=== PATIENT | male | born 1950 | race Caucasian/White ===

== ENCOUNTER → 2017-01-14 | Outpatient (CLI) | payer OTHER ==
[2016-07-05 15:30] VITALS: BP 140/81
[~2017-01-14] MED LIST: NS 100 ML IV 100 ML IV ONE
[2017-01-14 10:30] LABS: CREATININE 1.23 mg/dL (0.70-1.30)
--- NOTE | 2017-01-14 12:15 | CT ---
HISTORY: Followup pulmonary embolus. Patient had pulmonary emboli in June. Patient has been on bl ood thinners. Study: CTA chest, PE protocol Comparison: July 03, 2016 Technique: Multiple axial images of the chest were obtained from the thoracic inlet to the upper abd omen during the administration of IV contrast. In addition to standard multi planar reconstructions, MIP reconstructions were performed and reviewed in axial, coronal and sagittal planes. Dose reducti on techniques utilized automatic exposure control. Findings: A few small nonpathologic appearing lymph nodes are present in the central mediastinum and in the ao rtico pulmonary window. There is no pericardial effusion observed. The thoracic aorta is normal in its contour without evidence for aneurysmal dilatation. there are calcifications present within rig ht and left coronary arteries. Left-sided pacemaker is present with leads. These metallic structures are seen to create significant artifacts. Significant interval improvement is noted in the pulmonar y emboli which are now seen to involve only smaller branches that are present serving the arteries o f the posterior and lateral basal segment of the right lower lobe. No right upper lobe or left pulmo nary emboli are seen. Evaluation of the lung parenchyma reveals cylindrical bronchiectasis with patchy foci likely indicat ing inflammation involving the right upper lobe and right lower lobe regions. No dense consolidation or pleural fluid is seen. No pulmonary nodule or mass can be identified. The bony thorax is unrema rkable in its appearance. There is again evidence of hepatic steatosis. Adrenal glands are normal.. IMPRESSION: Significant interval improvement with reduction and pulmonary emboli. Few residual emboli present in volving branches supplying the lateral and posterior basal segments of the right lower lobe. COPD with cylindrical bronchiectasis and patchy foci of inflammation in right upper and right lower lobe regions. No dense consolidation or fluid is seen. Reported By:
== END ==
LOC: RAD 10:03
PROVIDERS: ATTEND Internal Medicine Critical Care Medicine
DX: I26.99 Other pulmonary embolism without acute cor pulmonale (principal)
CPT/HCPCS: 36415; 71275; 82565; 84520; A4222

== ENCOUNTER → 2017-05-16 | Outpatient (CLI) | payer OTHER ==
[2016-07-05 15:30] VITALS: BP 140/81
[~2017-05-16] MED LIST changes: -NS 100 ML IV 100 ML IV ONE; +NS 1000 ML 0 ML ONE; +NS 500 ML IV 500 ML IV ONE
[2017-05-16 09:04] LABS: CREATININE 1.43 mg/dL (0.70-1.30)
--- NOTE | 2017-05-16 11:37 | CT ---
HISTORY: History of pulmonary embolus Study: CTA chest with contrast for pulmonary embolus Comparison: 01/14/2017 Technique: Axial post-contrast images with coronal and sagittal reformats. Three-dimensional maximum intensity projection images were obtained and evaluated. Dose reduction procedures were used with mA/ kv adjusted for body size. Findings: There is no evidence for acute pulmonary thromboembolic disease. There is some residual peripheral no nocclusive thrombus identified at the bifurcation of segmental branches involving the posterior and m edial basal segments of the right lower lobe. This is best visualized on series 4 axial image 50 for and series 8 coronal image 40. No other residual evidence of the prior pulmonary emboli are identifie d. Examination of the mediastinum demonstrated no evidence for mediastinal masses, lymphadenopathy, o r hilar lymphadenopathy. Coronary artery calcifications are present. No pleural effusions are identif ied. No chest wall or axillary abnormality is identified. Those portions of the upper abdominal organ s visualized were within normal limits. No parenchymal nodules, masses, alveolar infiltrates, areas o f consolidation, or significant peribronchial thickening is identified. There is some mild cylindrica l bronchiectasis again identified in the right upper lobe unchanged in appearance from the prior exam ination. Mild inflammatory changes are also present in the right upper lobe. IMPRESSION: No evidence for acute pulmonary thromboembolic disease Minimal residual nonocclusive thrombus involving the arterial branches to the posterior and medial ba genaro segments on the right. Mild cylindrical bronchiectasis right upper lobe, stable Reported By:
== END | disposition home or self-care (01) | DRG 175 ==
LOC: RAD 08:38
PROVIDERS: ATTEND Internal Medicine Critical Care Medicine
DX: I26.09 Other pulmonary embolism with acute cor pulmonale (principal); J47.9 Bronchiectasis, uncomplicated
CPT/HCPCS: 36415; 71275; 82565; 84520

== ENCOUNTER 2020-04-12 19:13 | Inpatient (IN) ==
[2020-04-12 19:38] VITALS: BMI 43.0
--- NOTE | 2020-04-12 20:23 | DR.GENAD ---
HPI - PCP Primary Care Physician: HIRAM - Complaint/Symptoms Chief Complaint Doctors Comments: states he has been having problems with low blood pressure and with him being sleepy and confused. States his blood pressure at home was 120/45 and they have been hoding his lisinopril. States he just lost a daughter and has been dealing with depression and anxiety. He is taking Xanax 1mg twice daily. Family member denies tobacco or alcohol use. States he has COPD and has SOB but denies chest pain. He has been having swelling right leg mainly. They are unsure how much medicines he has taken. Chief Complaint:: LOW BLOOD PRESSURE, ANXIETY, LW OXYGEN SATURATION(IN THE UPPER 80'S), USUALLY RUNS LOW 90'S, DROWSY, GOES TO SLEEP SITTING UP Self Treatment fo Chief Complaint: BEEN WALKING, AND TRYING TO BE ACTIVE TO GET BLOOD PRESSURE HIGHER - COVID-19 Coronavirus risk:travel/contact w/high risk person: No Has patient experienced Coronavirus symptoms: No Coronavirus symptoms experienced: Shortness of Breath - Nurses notes reviewed Nurses Notes Review: Yes - Source History Provided: Family Member - Mode of Arrival Mode of Arrival: Ambulatory - Timing Onset of Chief Complaint: 04/12/20 Came on: Gradually - Duration Duration: Constant How lon Duration: Days - Severity Severity: Moderate - Modifying Factors Worsens:: nothing Improves:: nothing PMH - PMH Past Medical History: Yes Past Medical History: Anemia, Anxiety, CHF, COPD, Coronary Artery Disease, Diabetes, GERD, Hypertension, Sleep Apnea Past Surgical History: Yes Surgical History: CABG/Valve Surgery Past Surgical History Comment: PACEMAKER - Family History History of Family Medical Conditions: Yes Family Medical History: [place] - Social History Does patient currently use any type of tobacco product: No Have you used tobacco products in the last 12 months: No Type of Tobacco Use: None Alcohol Use: None Do you use any recreational Drugs:: No Lives With: Spouse Lives Where: Home - Travel Risk Coronavirus risk:travel/contact w/high risk person: No Has patient experienced Coronavirus symptoms: No - infectious screening In the last 2 months have you had wt loss of >10#?: NO Have you had fever, night sweats or hemotysis?: No Have you traveled outside the country in the last 6 months?: No Isolation: Standard ROS - Review of Systems Constitutional: No Symptoms Reported Eyes: No Symptoms Reported ENTM: No Symptoms Reported Respiratoy: No Symptoms Reported, Short of Breath Cardiovascular: No Symptoms Reported, Edema. negative: See HPI, Chest Pain, Palpitations, Syncope, Cyanosis, Skin Mottling, Other Gastrointestinal/Abdominal: No Symptoms Reported Genitourinary: No Symptoms Reported Neurological: No Symptoms Reported, Anxiety, Depressed, Weakness Musculoskeletal: No Symptoms Reported Integumentary: No Symptoms Reported Hematologic/Lymphatic: No Symptoms Reported. negative: See HPI, Anemia, Blood Clots, Easy Bleeding, Easy Bruising, Swollen Glands, Lymphadenopathy, Other Endocrine: No Symptoms Reported Psychiatric: No Symptoms Reported, Anxiety, Depression PE - General Limitations: No Limitations General Appearance: Alert, In Distress (moderate) - Head Head Exam: Normal Inspection, Atraumatic, Normocephalic - Eyes Eye exam: Normal Appearance, PERRL, EOMI. negative: Scleral Icterus, Conjunctival Injection, Nystagmus, Miosis, Mydrasis, Periorbital Swelling, Periorbital Tenderness, Other - ENT ENT Exam: Normal Exam, Normal Oropharynx, Normal External Ear Exam, Mucous Membranes Moist, TM's Normal Bilaterally External Ear Exam: Normal External Inspection TM/Canal Exam: Bilateral Normal Nose Exam: Normal Nose Exam Mouth Exam: Normal Inspection Throat Exam: Normal Inspection - Neck Neck Exam: Normal Inspection, Full ROM, Trachea Midline. negative: Tenderness, Meningismus, Lymphadenopathy, Thyromegaly, Other - Chest Chest Inspection: Normal Inspection, Symmetric Chest Wall Rise. negative: Tenderness, Rash, Abscess, Other - Respiratory Respiratory Exam: Normal Lung Sounds Bilat Respiratory Exam: Bilateral Clear to Auscultation - Cardiovascular Cardiovascular Exam: Regular Rate, Normal Rhythm - Abdominal Exam Abdominal Exam: Normal Inspection, Normal Bowel Sounds, Soft. negative: Distention, Tenderness, Guarding, Rebound, Rigidity, Dimnished Bowel Sounds, Hyperactive Bowel Sounds, Hypoactive Bowel Sounds, Organomegaly, Trauma, Incision, Ascites, Mass, Bruit, Pulsatile Mass, Hernia, Other Abdominal Tenderness: negative: RUQ, RLQ, LUQ, LLQ, Epigastrium, Suprapubic, Diffuse, Mild, Moderate, Severe, Other - Extremities Extremities Exam: Normal Inspection, Full ROM, Normal Capillary Refill, Edema. negative: Tenderness, Joint Swelling, Calf Tenderness, Other - Back Back Exam: Normal Inspection, Full ROM. negative: Tenderness, (R) CVA Tenderness, (L) CVA Tenderness, Muscle Spasm, Paraspinal Tenderness, Vertebral Tenderness, Rashes, (R) Sciatic Notch Tenderness, (L) Sciatic Notch Tendern, (R) Straight Leg Raise, (L) Straight Leg Raise, Other - Neurologic Neurological Exam: Oriented X3, CN II-XII Intact, Normal Gait, Reflexes Normal. negative: Alert (lethargic) - Psychiatric Psychiatric Exam: Normal Affect, Normal Mood, Depressed - Skin Skin Exam: Warm, Dry, Intact, Normal Color - Vital Signs Vitals: Temperature 99.2 F Pulse Rate [Standing] 71 Pulse Rate [Sitting] 71 Pulse Rate [Lying] 72 Pulse Rate 80 Respiratory Rate 21 Blood Pressure [Right Arm] 140/81 Blood Pressure [Left Arm] 115/52 Blood Pressure [Standing] 109/55 Blood Pressure [Sitting] 124/57 Blood Pressure [Lying] 117/57 Blood Pressure 132/59 O2 Sat by Pulse Oximetry 90 Course - Consultation Called: 22:52 Call Returned: 22:53 (Dr. Braden to admit) - Education/Counseling Education/Counseling: Patient, Family Educated On: Treatment, Diagnosis, Prognosis, Needs for Follow Up ROR - Labs Reviewed Laboratory Results Reviewed?: Yes (All labs and x-ray results reviewed and discussed with patient) Result Diagrams: 04/12/20 20:35 04/12/20 20:35 - XRAY XRAY Interpreted by: Radiologist (CT head: No acute intracranial process ban be identified) - EKG Rate: 75 [place]: Normal Rhythm: Paced Block: None Hypertrophy: None ST: Nonsp - Labs Reviewed Laboratory: WBC 5.3 X10^3/uL (3.6-10.0) 04/12/20 20:35 RBC 4.52 X10^6/uL (4.7-6.0) L 04/12/20 20:35 Hgb 12.4 g/dL (13.5-18.0) L 04/12/20 20:35 Hct 38.7 % (42.0-54.0) L 04/12/20 20:35 MCV 85.5 fL (80.0-100.0) 04/12/20 20:35 MCH 27.5 pg (27.0-34.0) 04/12/20 20:35 MCHC 32.2 g/dL (33.0-35.0) L 04/12/20 20:35 RDW 16.2 % (11.6-16.5) 04/12/20 20:35 Plt Count 145 X10^3/uL (150.0-450.0) L 04/12/20 20:35 MPV 7.6 fL (7.4-11.0) 04/12/20 20:35 Neut % (Auto) 53.0 % (42.0-75.0) 04/12/20 20:35 Lymph % (Auto) 25.2 % (21.0-51.0) 04/12/20 20:35 [place] % (Auto) 11.3 % (0.0-13.0) 04/12/20 20:35 Eos % (Auto) 9.5 % (0.9-2.9) H 04/12/20 20:35 Baso % (Auto) 1.0 % (0.2-1.0) 04/12/20 20:35 Neut # (Auto) 2.8 x10^3/uL (2.2-4.8) 04/12/20 20:35 Lymph # (Auto) 1.3 X10^3/uL (1.3-2.9) 04/12/20 20:35 [place] # (Auto) 0.6 x10^3/uL (0.3-0.8) 04/12/20 20:35 Eos # (Auto) 0.5 x10^3/uL (0.0-0.2) H 04/12/20 20:35 Baso # (Auto) 0.1 X10^3/uL (0.0-0.1) 04/12/20 20:35 Absolute Nucleated RBC 0.0 /100WBC 04/12/20 20:35 PT 15.3 SECONDS (11.8-14.3) 04/12/20 20:35 INR Target Range - 04/12/20 20:35 INR 1.24 (0.8-1.3) 04/12/20 20:35 APTT 33.2 SECONDS (22.9-36.5) 04/12/20 20:35 PTT Comment - 04/12/20 20:35 Sodium 143 mmol/L (136-145) 04/12/20 20:35 Corrected Sodium TNP 04/12/20 20:35 Potassium 4.0 mmol/L (3.5-5.1) 04/12/20 20:35 Chloride 104 mmol/L (98-107) 04/12/20 20:35 Carbon Dioxide 32.2 mmol/L (21-32) H 04/12/20 20:35 BUN 18 mg/dL (7-18) 04/12/20 20:35 Creatinine 1.18 mg/dL (0.70-1.30) 04/12/20 20:35 Est GFR (MDRD) Af Amer > 60 (>60) 04/12/20 20:35 Est GFR (MDRD) Non-Af > 60 (>60) 04/12/20 20:35 Glucose 95 mg/dL (65-99) 04/12/20 20:35 Calcium 9.6 mg/dL (8.5-10.1) 04/12/20 20:35 Corrected Calcium TNP 04/12/20 20:35 Magnesium 1.8 mg/dL (1.7-2.9) 04/12/20 20:35 Total Bilirubin 0.50 mg/dL (0.2-1.0) 04/12/20 20:35 AST 50 Units/L (15-37) H 04/12/20 20:35 ALT 34 Units/L (12-78) 04/12/20 20:35 Alkaline Phosphatase 64 Units/L (46-116) 04/12/20 20:35 Creatine Kinase 458 Units/L (39-308) H 04/12/20 20:35 CK-MB (CK-2) 1.8 ng/mL (0-4.0) 04/12/20 20:35 CK/CKMB % Calc 0.4 % (<4) 04/12/20 20:35 Troponin I < 0.02 ng/mL (0-1.5) 04/12/20 20:35 Total Protein 7.5 g/dL (6.4-8.2) 04/12/20 20:35 Albumin 3.4 g/dL (3.4-5.0) 04/12/20 20:35 Globulin 4.1 g/dL (2.5-4.5) 04/12/20 20:35 Albumin/Globulin Ratio 0.8 Ratio (1.1-2.1) L 04/12/20 20:35 Specimen Type Clean catch urine 04/12/20 21:57 Urine Color Dark yellow (YELLOW) 04/12/20 21:57 Urine Appearance Clear (CLEAR) 04/12/20 21:57 Urine pH 5.0 (5.0 - 8.0) 04/12/20 21:57 Ur Specific [place] 1.025 (1.000-1.030) 04/12/20 21:57 Urine Protein 1+ (NEGATIVE) 04/12/20 21:57 Urine Glucose (UA) Negative (NEGATIVE) 04/12/20 21:57 Urine Ketones 1+ (NEGATIVE) 04/12/20 21:57 Urine Occult Blood 1+ (NEGATIVE) 04/12/20 21:57 Urine Nitrite Negative (NEGATIVE) 04/12/20 21:57 Urine Bilirubin Negative (NEGATIVE) 04/12/20 21:57 Urine Urobilinogen 1+ (NORMAL) 04/12/20 21:57 Ur Leukocyte Esterase 1+ (NEGATIVE) 04/12/20 21:57 Urine RBC 0-2 /HPF (0-3) 04/12/20 21:57 Urine WBC 0-2 /HPF (0-5) 04/12/20 21:57 Ur Squamous Epith Cells Rare /HPF (NEGATIVE) 04/12/20 21:57 Urine Bacteria Trace /HPF (NEGATIVE) 04/12/20 21:57 Ur Culture Indicated? No/not indicated 04/12/20 21:57 Urine Opiates Screen Negative (NEG=<300) 04/12/20 21:57 Urine Methadone Screen Positive (NEG=<300) 04/12/20 21:57 Ur Barbiturates Screen Negative (NEG=<200) 04/12/20 21:57 Ur Phencyclidine Scrn Negative (NEG=<25) 04/12/20 21:57 Ur Amphetamines Screen Negative (NEG=<1000) 04/12/20 21:57 U Benzodiazepines Scrn Positive (NEG=<200) 04/12/20 21:57 Urine Cocaine Screen Negative (NEG=<300) 04/12/20 21:57 U Marijuana (THC) Screen Negative (NEG=<50) 04/12/20 21:57 - XRAY Xray Findings: CXR: Low lung volume with mild bibasilar atelectasis versus infiltrates. (JUAN C SHEA) Opioid - Opioid Risk Tool Age ([place] box if 16-45): No History of Preadolescent Sexual Abuse: No Total: 0 Total Score Risk Category: Low Risk - Diagnosis Discharge Problem: Mild bibasilar atelectasis, Sedated due to multiple medications Altered mental status Qualifiers: Altered mental status type: disorientation Qualified Code(s): R41.0 - Disorientation, unspecified Hypotension Qualifiers: Hypotension type: unspecified hypotension type Qualified Code(s): I95.9 - Hypotension, unspecified COPD (chronic obstructive pulmonary disease) Qualifiers: Chronic bronchitis type: unspecified - Discharge Plan Condition: Stable - Follow ups/Referrals Follow ups/Referrals: VINCE GANDHI [Primary Care Provider] - 3 days - Instructions
[2020-04-12 20:44] LABS: BASOPHILS # (AUTO) 0.1 X10^3/uL (0.0-0.1); EOSINOPHILS # (AUTO) 0.5 x10^3/uL (0.0-0.2); EOSINOPHILS % (AUTO) 9.5 % (0.9-2.9); HEMATOCRIT 38.7 % (42.0-54.0); HEMOGLOBIN 12.4 g/dL (13.5-18.0); LYMPHOCYTES # (AUTO) 1.3 X10^3/uL (1.3-2.9); LYMPHOCYTES % (AUTO) 25.2 % (21.0-51.0); MEAN CORPUSCULAR HEMOGLOBIN 27.5 pg (27.0-34.0); MEAN CORPUSCULAR HGB CONC 32.2 g/dL (33.0-35.0); MEAN CORPUSCULAR VOLUME 85.5 fL (80.0-100.0); MEAN PLATELET VOLUME 7.6 fL (7.4-11.0); MONOCYTES # (AUTO) 0.6 x10^3/uL (0.3-0.8); MONOCYTES % (AUTO) 11.3 % (0.0-13.0); NEUTROPHILS # (AUTO) 2.8 x10^3/uL (2.2-4.8); PLATELET COUNT 145 X10^3/uL (150.0-450.0); RED BLOOD COUNT 4.52 X10^6/uL (4.7-6.0); RED CELL DISTRIBUTION WIDTH 16.2 % (11.6-16.5); WHITE BLOOD COUNT 5.3 X10^3/uL (3.6-10.0)
[2020-04-12] MEDS ORDERED: NS 1000 ML 1,000 ML ONE (20:53)
[2020-04-12 20:59] LABS: BLOOD UREA NITROGEN 18 mg/dL (7-18); CALCIUM 9.6 mg/dL (8.5-10.1); CARBON DIOXIDE 32.2 mmol/L (21-32); CHLORIDE 104 mmol/L (98-107); CREATININE 1.18 mg/dL (0.70-1.30); SODIUM 143 mmol/L (136-145); TROPONIN I < 0.02 ng/mL (0-1.5); eGFR NON BLACK RACES > 60 (>60)
[2020-04-12] MEDS ORDERED: NS 1000 ML 1,000 ML IV SCH ×2 (21:00→22:00)
[2020-04-12 21:03] LABS: ALANINE AMINOTRANSFERASE 34 Units/L (12-78); ALBUMIN 3.4 g/dL (3.4-5.0); ALKALINE PHOSPHATASE 64 Units/L (46-116); ASPARTATE AMINO TRANSFERASE 50 Units/L (15-37); CKMB % 0.4 % (<4); CREATINE KINASE 458 Units/L (39-308); CREATINE KINASE MB 1.8 ng/mL (0-4.0); MAGNESIUM 1.8 mg/dL (1.7-2.9); TOTAL PROTEIN 7.5 g/dL (6.4-8.2)
--- NOTE | 2020-04-12 21:04 | CT ---
HISTORYAltered mental status.STUDYBRAIN W/O CONCOMPARISONNone.TECHNIQUEMultiple axial images of the brain were obtained from the skull base to the vertex without administration of IV contrast. Dose reduction techniques including Automated Exposure Control (AEC) and adjustment of mA and kV were utilized.FINDINGSNo acute intraparenchymal hemorrhage or mass can be identified. No extra-axial fluid collections are seen. No alteration in the attenuation of the brain parenchyma can be identified to suggest acute or subacute ischemic change. The ventricular system is symmetric and nondilated. The extracranial structures are grossly unremarkable.IMPRESSIONNo acute intracranial process can be identified.Electronically signed by: KANDY BENTLEY (Apr 12, 2020 21:03:22)
--- NOTE | 2020-04-12 21:21 | RAD ---
HISTORYCHEST PAINSTUDYCHEST, 1 [id number]/25/2019FINDINGSThe trachea is midline. The cardiac silhouette is unremarkable. Low lung volume with mild bibasilar atelectasis versus infiltrates. Mild elevation of the right hemidiaphragm. Left chest wall cardiac pacer unchanged in position.. The bony thorax is stable.IMPRESSIONLow lung volume with mild bibasilar atelectasis versus infiltrates.Electronically signed by: Liset Nixon (Apr 12, 2020 21:19:50)
[2020-04-12 22:13] LABS: BILIRUBIN,URINE NEGATIVE (NEGATIVE); BLOOD/HEMOGLOBIN,URINE 1+ (NEGATIVE); GLUCOSE, URINE NEGATIVE (NEGATIVE); KETONES,URINE 1+ (NEGATIVE); LEUKOCYTE ESTERASE ,URINE 1+ (NEGATIVE); NITRITES,URINE NEGATIVE (NEGATIVE); PROTEIN,URINE 1+ (NEGATIVE); UROBILINOGEN,URINE 1+ (NORMAL)
[2020-04-12 22:22] LABS: APPEARANCE,URINE CLEAR (CLEAR); BACTERIA,URINE TRACE /HPF (NEGATIVE); COLOR,URINE DARK YELLOW (YELLOW); RBC,URINE 0-2 /HPF (0-3); SQUAMOUS EPITHELIAL CELL,UR RARE /HPF (NEGATIVE)
[2020-04-12] MEDS ORDERED: ROCEPHIN VIAL 1 GRAM 1 G in NS 100 ML IV + SPIKE MINIBAG* 100 ML IV ONE (22:35)
[2020-04-12] MEDS ORDERED: NARCAN INJ IVP ONE (22:38)
[2020-04-12] MEDS ORDERED: NS 100 ML IV + SPIKE MINIBAG* 100 ML IV ONE (22:50)
[2020-04-12] MEDS ORDERED: ROCEPHIN VIAL 1 GRAM ONE (22:50)
[2020-04-12] MEDS ORDERED: NARCAN INJ ONE (22:50)
[2020-04-12] MEDS ORDERED: BENADRYL INJ 50 MG VIAL ONE (22:58)
[2020-04-12] MEDS ORDERED: BENADRYL INJ 50 MG VIAL IVP ONE (23:03)
[2020-04-12] MEDS ORDERED: MORPHINE SULFATE INJ 2 MG INJ IVP ONE ×2 (23:30→23:41)
[2020-04-12] MEDS ORDERED: MORPHINE SULFATE INJ 2 MG INJ ONE ×2 (23:31→23:42)
[2020-04-12] MEDS ORDERED: NS 1/2 1000 ML IV 1,000 ML IV SCH (23:45)
[2020-04-13] MEDS ORDERED: ROCEPHIN 1 GRAM IV PREMIX 1 G/50 ML IV.SOLN. IV SCH
[2020-04-13] MEDS ORDERED: ATIVAN INJ 2 MG VIAL IVP STA (00:18)
[2020-04-13] MEDS ORDERED: ATIVAN INJ 2 MG VIAL ONE (00:18)
[2020-04-13 01:01] LABS: ABG BASE EXCESS 6.7 mmol/L (-2.0-2.0)
[2020-04-13 01:02] LABS: ABG ALLEN TEST POS; ABG HCO3 31.9 mmol/L (22-26)
[2020-04-13] MEDS: NS 1/2 + KCL 20 MEQ/L 1,000 ML IV SCH ×2 (04:55→13:39)
[2020-04-13 05:10] LABS: BASOPHILS # (AUTO) 0.1 X10^3/uL (0.0-0.1); EOSINOPHILS # (AUTO) 0.4 x10^3/uL (0.0-0.2); EOSINOPHILS % (AUTO) 7.2 % (0.9-2.9); HEMATOCRIT 37.4 % (42.0-54.0); HEMOGLOBIN 12.1 g/dL (13.5-18.0); LYMPHOCYTES # (AUTO) 1.2 X10^3/uL (1.3-2.9); LYMPHOCYTES % (AUTO) 20.3 % (21.0-51.0); MEAN CORPUSCULAR HEMOGLOBIN 27.5 pg (27.0-34.0); MEAN CORPUSCULAR HGB CONC 32.3 g/dL (33.0-35.0); MEAN CORPUSCULAR VOLUME 85.2 fL (80.0-100.0); MEAN PLATELET VOLUME 7.6 fL (7.4-11.0); MONOCYTES # (AUTO) 0.7 x10^3/uL (0.3-0.8); MONOCYTES % (AUTO) 11.5 % (0.0-13.0); NEUTROPHILS # (AUTO) 3.5 x10^3/uL (2.2-4.8); PLATELET COUNT 136 X10^3/uL (150.0-450.0); RED CELL DISTRIBUTION WIDTH 15.5 % (11.6-16.5); WHITE BLOOD COUNT 5.9 X10^3/uL (3.6-10.0)
[2020-04-13 05:21] LABS: ALANINE AMINOTRANSFERASE 31 Units/L (12-78); ALBUMIN 3.1 g/dL (3.4-5.0); ALKALINE PHOSPHATASE 55 Units/L (46-116); ASPARTATE AMINO TRANSFERASE 45 Units/L (15-37); BLOOD UREA NITROGEN 17 mg/dL (7-18); CALCIUM 9.2 mg/dL (8.5-10.1); CARBON DIOXIDE 30.2 mmol/L (21-32); CHLORIDE 106 mmol/L (98-107); COR CA(FOR HYPOALB) 9.9 mg/dL (8.5-10.1); CREATININE 1.06 mg/dL (0.70-1.30); SODIUM 143 mmol/L (136-145); eGFR NON BLACK RACES > 60 (>60)
--- NOTE | 2020-04-13 06:55 | RAD ---
HISTORYSOBSTUDYCHEST, 1 [id number]/17/2020FINDINGSThe patient is mildly rotated on today's examination significant limiting evaluation. Heart size appears enlarged. No change in positioning left chest wall pacemaker. Pulmonary vascular congestion is noted increased prominence of interstitium. No dense airspace consolidation, pleural effusion or pneumothorax. No acute osseous abnormality.IMPRESSIONSignificantly limited examination secondary to technique and patient rotation.Cardiomegaly and pulmonary vascular congestion, there is suspicion for worsening interstitial opacities representing a developing mild interstitial edema.Electronically signed by: NAIMA JUNIOR (Apr 13, 2020 06:53:41)
[2020-04-13] MEDS ORDERED: K-RIDER 10 MEQ/NS 100 ML 10 MEQ/100 ML BAG IV PRN (07:29)
[2020-04-13] MEDS ORDERED: POTASSIUM CHL 40 MEQ/NS 0.45% 500 ML IV PRN (07:29)
[2020-04-13] MEDS ORDERED: POTASSIUM CHL 60 MEQ/NS 0.45% 500 ML IV PRN (07:29)
[2020-04-13] MEDS ORDERED: MICRO K EXTEN CAP 10 MEQ PO PRN (07:29)
[2020-04-13] MEDS ORDERED: K-DUR TAB 20 MEQ PO PRN (07:29)
[2020-04-13] MEDS ORDERED: POTASSIUM CHLORIDE LIQ 20 MEQ UDC PO PRN (07:29)
[2020-04-13] MEDS ORDERED: KLOR-CON PO PRN (07:29)
[2020-04-13] MEDS ORDERED: K-DUR TAB 20 MEQ PO ONE (08:01)
[2020-04-13] MEDS ORDERED: MAGNESIUM SULFATE 1 GRAM/100 mL PREMIX 2 G/200 ML BAG IV ONE (08:02)
[2020-04-13] MEDS: MAGNESIUM SULFATE 1 GRAM/100 mL PREMIX 1 GM/100 ML BAG IV PRN ×2 (08:54→10:09)
[2020-04-13] MEDS: ROCEPHIN 1 GRAM IV PREMIX 1 G/50 ML IV.SOLN. IV SCH (08:54)
[2020-04-13] MEDS: ROBITUSSIN DM PO SCH ×4 (08:55→21:10)
[2020-04-13] MEDS: PROVENTIL NEB TX 0.083% 2.5MG/ 3ML NEB PRN ×3 (09:45→21:06)
[2020-04-13] MEDS: PULMICORT NEB TX 0.5 MG NEB SCH ×2 (09:45→21:06)
[2020-04-13] MEDS ORDERED: XANAX PO PRN (10:42)
[2020-04-13] MEDS ORDERED: LASIX PO SCH (11:00)
[2020-04-13] MEDS: PriLOSEC PO SCH (11:37)
[2020-04-13] MEDS: ELIQUIS PO SCH ×2 (11:37→21:10)
[2020-04-13] MEDS: METHADONE HCL PO SCH ×3 (11:37→21:11)
[2020-04-13] MEDS ORDERED: ZESTRIL TAB 20 MG ONE ×2 (11:55→21:07)
[2020-04-13] MEDS: ZESTRIL TAB 20 MG PO SCH ×2 (11:56→21:11)
[2020-04-13] MEDS ORDERED: CATAPRES-TTS-1 TD SCH (12:00)
[2020-04-13] MEDS ORDERED: CATAPRES-TTS-1 TD ONE (12:23)
[2020-04-13] MEDS ORDERED: TORADOL 30 MG VIAL IVP PRN (12:51)
--- NOTE | 2020-04-13 13:11 | DR.H&P ---
H&P - History & Physical for Day of: H&P Date: 04/12/20 - Chief Complaint Chief Complaint: AMS, LOW BP, DROWSINESS, SOB, DECREASED OXYGEN SATURATIONS - History of Present Illness History of Present Illness: IS A 69 YEAR OLD PATIENT OF . HE PRESENTED TO THE ER WITH COMPLAINTS OF INCREASED DROWSINESS, CONFUSION, DECREASED BLOOD PRESSURE, SHORTNESS OF BREATH, AND DECREASED OXYGEN SATURATIONS. HIS OXYGEN SATURATIONS HAVE BEEN IN THE 80s. FAMILY REPORTS THAT HE HAS BEEN FALLING ASLEEP WHILE SITTING UP IN THE CHAIR. HE DOES HAVE A HISTORY OF COPD. PATIENTS SPOUSE REPORTS THAT THEIR DAUGHTER LAST WEEK AND THAT PATIENT HAS BEEN MORE DROWSY SINCE BEING STARTED ON XANAX. THEY BELIEVE THAT HE MAY HAVE BEEN TAKING TOO MUCH MEDICATION. PATIENT IS ALSO ON METHADONE. HIS PMH INCLUDES: ANEMIA, ANXIETY, CHF, COPD, CAD, DIABETES, GERD, HTN, SLEEP APNEA, CABG, AND PACEMAKER. ON ARRIVAL, PATIENT IS LETHARGIC. HE MUMBLES WHEN SPOKEN TO, BUT IS UNABLE TO STAY AWAKE. HIS VITALS ON ARRIVAL WERE 99.2-79-16-90%RA-117/57. LABS WERE OBTAINED. ABNORMAL LAB VALUES INCLUDE THE FOLLOWING: RBC 4.52, HGB 12.4, HCT 38.7, PLT COUNT 145, CARBON DIOXIDE 32.2, AST 50, CREATINE KINASE 458. TOXICOLOGY WAS POSITIVE FOR METHADONE AND BENZODIAZEPINES. URINALYSIS REVEALED: WBC 0-2, RBC 0-2, BACTERIA TRACE, LEUKOCYTES TRACE, OCCULT BLOOD 1+. ABG REVEALED: PH 7.440, PC02 47, P02 64, HC03 31.9, 02 SAT 93, BASE EXCESS 6.7, FI02 21.0. A CHEST XRAY WAS OBTAINED AND REVEALED: Low lung volume with mild bibasilar atelectasis versus infiltrates. A BRAIN CT WAS OBTAINED AND REVEALED: No acute intracranial process can be identified. EKG REVEALED: ATRIAL PACED COMPLEXES WITH HR 75. HE WAS GIVEN NARCAN 0.4MG IV X 1, ROCEPHIN 1G IV X 1, BENADRYL 50MG IV X 1, AND NORMAL SALINE AT 125 ML/HR IN THE ER. PATIENT DID BECOME MORE ALERT AFTER ADMINISTRATION OF NARCAN. HE WAS ADMITTED TO THE HOSPITAL FOR FURTHER EVALUATION AND TREATMENT OF AMS, HYPOTENSION, HYPOKALEMIA, AND CHF. HE WAS STARTED ON SUPPLEMENTAL OXYGEN, NS WITH 20MEQ KCL AT 80 ML/HR, ROCEPHIN 1G IV DAILY, ALBUTEROL NEB TX QID, PULMICORT NEBS BID, LASIX 20MG IV BID, ROBITUSSIN DM 10 ML PO QID, THE POTASSIUM AND MAGNESIUM PROTOCOLS, AND HIS HOME MEDICATIONS OF XANAX, ELIQUIS, ZESTRIL, METHADONE, PRILOSEC, PAXIL, AND ZOCOR WERE RESUME. OTHERWISE, WE PLAN TO FOLLOW UP WITH AM LABS, CHEST XRAY, AND CONTINUE TO MONITOR. - Past Medical History Past Medical History: Anemia, Anxiety, CHF, COPD, Coronary Artery Disease, Diabetes, GERD, Hypertension, Sleep Apnea - Past Surgical History Surgical History: Angioplasty/Stents, Cholecystectomy, Joint Replacement - Family History Family Medical History: Diabetes Mellitus - Social History Does patient currently use any type of tobacco product: No Have you used tobacco products in the last 12 months: No Type of Tobacco Use: None Alcohol Use: None Drug Use: None - Medications Home Medications: propoxyphene [From [employer] 100] Allergy (Verified 04/12/20 20:39) CONTINUE taking the following medications alprazolam 1 mg PO BID PRN 04/12/20 [History] furosemide 20 mg PO DAILY 04/12/20 [History] lisinopril 20 mg PO BID 04/12/20 [History] methadone 10 mg PO TID 04/12/20 [History] omeprazole 20 mg PO DAILY 04/12/20 [History] paroxetine HCl 30 mg PO HS 04/12/20 [History] potassium chloride 20 meq PO DAILY 04/12/20 [History] simvastatin 80 mg PO QHS 04/12/20 [History] - Review of Systems Constitutional: See HPI, Weakness, Malaise Eyes: No Symptoms Reported ENT: No Symptoms Reported Respiratory: See HPI, Shortness of Breath Cardiovascular: No Symptoms Reported Gastrointestinal: No Symptoms Reported Genitourinary: No Symptoms Reported Musculoskeletal: No Symptoms Reported Skin: No Symptoms Reported Neurological: See HPI, Weakness, Incoordination, Change in Speech, Confusion - Physical Exam Vital Signs: Temperature 97.5 F Pulse Rate [Apical] 69 Pulse Rate [Left Brachial] 69 Pulse Rate [Standing] 71 Pulse Rate [Sitting] 71 Pulse Rate [Lying] 72 Pulse Rate 71 Respiratory Rate 22 Blood Pressure [Right Arm] 198/88 Blood Pressure [Left Arm] 115/52 Blood Pressure [Standing] 109/55 Blood Pressure [Sitting] 124/57 Blood Pressure [Lying] 117/57 Blood Pressure 132/59 O2 Sat by Pulse Oximetry 92 Oriented: Unable to test Eyes: Normal Ear: Normal Nose: Normal Throat: Normal Respiratory: Diminished Throughout Cardiovascular: Normal : Normal Auscultation: Bowel Sounds: Normal Palpation: Normal Tenderness: Normal Skin: Normal Musculoskeletal: Normal Psychiatric: Anxiety, Agitation Mood Description: Anxious Affect: Anxious Speech Pattern: Inappropriate - Assessment/Plan (1) Altered mental status Qualifiers: Altered mental status type: disorientation Qualified Code(s): R41.0 - Disorientation, unspecified Status: Acute (2) Hypotension Qualifiers: Hypotension type: unspecified hypotension type Qualified Code(s): I95.9 - Hypotension, unspecified Status: Acute (3) Respiratory distress Status: Acute (4) CHF (congestive heart failure) Qualifiers: Heart failure type: unspecified Heart failure chronicity: acute on chronic Qualified Code(s): I50.9 - Heart failure, unspecified Status: Chronic (5) COPD (chronic obstructive pulmonary disease) with acute bronchitis Status: Chronic (6) Diabetes mellitus Qualifiers: Diabetes mellitus type: type 2 Diabetes mellitus assisted insulin use: unspecified terminal operations supervisor insulin use status Diabetes mellitus complication status: with other specified complication Qualified Code(s): E11.69 - Type 2 diabetes mellitus with other specified complication Status: Chronic (7) Anxiety Status: Chronic (8) Depression Qualifiers: Depression Type: major depressive disorder Major depression recurrence: recurrent Active/Remission status: currently active Major depression episode severity: unspecified Qualified Code(s): F33.9 - Major depressive disorder, recurrent, unspecified Status: Chronic - Allergies Allergies/Adverse Reactions: Allergies Allergy/AdvReac Type Severity Reaction Status Date / Time propoxyphene Allergy Verified 04/12/20 20:39 [From Darvocet-N 100]
[2020-04-13] MEDS: LASIX IVP SCH (16:04)
[2020-04-13] MEDS ORDERED: ZOCOR TAB 40 MG PO SCH (21:00)
[2020-04-13] MEDS ORDERED: PAXIL PO SCH (21:00)
[2020-04-14] MEDS: NS 1/2 + KCL 20 MEQ/L 1,000 ML IV SCH (05:04)
[2020-04-14 05:06] LABS: BASOPHILS % (AUTO) 0.7 % (0.2-1.0); EOSINOPHILS # (AUTO) 0.5 x10^3/uL (0.0-0.2); EOSINOPHILS % (AUTO) 8.9 % (0.9-2.9); HEMATOCRIT 39.1 % (42.0-54.0); HEMOGLOBIN 12.3 g/dL (13.5-18.0); LYMPHOCYTES # (AUTO) 1.2 X10^3/uL (1.3-2.9); LYMPHOCYTES % (AUTO) 20.8 % (21.0-51.0); MEAN CORPUSCULAR HEMOGLOBIN 27.3 pg (27.0-34.0); MEAN CORPUSCULAR HGB CONC 31.5 g/dL (33.0-35.0); MEAN CORPUSCULAR VOLUME 86.7 fL (80.0-100.0); MEAN PLATELET VOLUME 7.7 fL (7.4-11.0); MONOCYTES # (AUTO) 0.8 x10^3/uL (0.3-0.8); MONOCYTES % (AUTO) 13.6 % (0.0-13.0); NEUTROPHILS # (AUTO) 3.2 x10^3/uL (2.2-4.8); PLATELET COUNT 132 X10^3/uL (150.0-450.0); RED BLOOD COUNT 4.52 X10^6/uL (4.7-6.0); RED CELL DISTRIBUTION WIDTH 16.1 % (11.6-16.5); WHITE BLOOD COUNT 5.6 X10^3/uL (3.6-10.0)
[2020-04-14 05:20] LABS: ALANINE AMINOTRANSFERASE 33 Units/L (12-78); ALBUMIN 3.1 g/dL (3.4-5.0); ALKALINE PHOSPHATASE 59 Units/L (46-116); ASPARTATE AMINO TRANSFERASE 41 Units/L (15-37); BLOOD UREA NITROGEN 11 mg/dL (7-18); CALCIUM 8.5 mg/dL (8.5-10.1); CARBON DIOXIDE 32.8 mmol/L (21-32); CHLORIDE 104 mmol/L (98-107); COR CA(FOR HYPOALB) 9.2 mg/dL (8.5-10.1); CREATININE 1.22 mg/dL (0.70-1.30); MAGNESIUM 2.1 mg/dL (1.7-2.9); SODIUM 142 mmol/L (136-145); TOTAL PROTEIN 7.2 g/dL (6.4-8.2); eGFR NON BLACK RACES > 60 (>60)
--- NOTE | 2020-04-14 05:20 | RAD ---
HISTORYSOBSTUDYCHEST, 1 [id number]/2020FINDINGSThe trachea is midline. The cardiac silhouette is mildly enlarged, similar to prior exam, accounting for difference in rotation.. Mild central pulmonary vascular congestion and bibasilar patchy atelectasis versus infiltrates again seen.. The bony thorax is stable.IMPRESSIONNo appreciable interval change accounting for difference in rotation.Electronically signed by: Liset Nixon (Apr 14, 2020 05:19:17)
[2020-04-14] MEDS ORDERED: ZESTRIL TAB 20 MG ONE (08:33)
[2020-04-14] MEDS: ROBITUSSIN DM PO SCH (08:36)
[2020-04-14] MEDS: ELIQUIS PO SCH (08:37)
[2020-04-14] MEDS: LASIX IVP SCH (08:38)
[2020-04-14] MEDS: ROCEPHIN 1 GRAM IV PREMIX 1 G/50 ML IV.SOLN. IV SCH (08:38)
[2020-04-14] MEDS: ZESTRIL TAB 20 MG PO SCH (08:39)
[2020-04-14] MEDS: PriLOSEC PO SCH (08:39)
[2020-04-14] MEDS ORDERED: K-DUR TAB 20 MEQ PO SCH (09:00)
[2020-04-14] MEDS: PROVENTIL NEB TX 0.083% 2.5MG/ 3ML NEB PRN (09:20)
[2020-04-14] MEDS: PULMICORT NEB TX 0.5 MG NEB SCH (09:20)
[2020-04-14 10:39] VITALS: BP 148/67
== END 2020-04-14 11:00 | disposition home or self-care (01) | DRG 948 ==
LOC: ER 19:21 → MED/SURG 23:18 → ICU 04-13 00:10
PROVIDERS: ADMIT Internal Medicine; ATTEND Internal Medicine
DX: I95.89 Other hypotension; T40.3X5A Adverse effect of methadone, initial encounter; E11.65 Type 2 diabetes mellitus with hyperglycemia; J44.9 Chronic obstructive pulmonary disease, unspecified; R94.31 Abnormal electrocardiogram [ECG] [EKG]; F41.8 Other specified anxiety disorders; Z95.0 Presence of cardiac pacemaker; I50.9 Heart failure, unspecified; F33.9 Major depressive disorder, recurrent, unspecified; Y92.9 Unspecified place or not applicable; I25.10 Atherosclerotic heart disease of native coronary artery without angina pectoris; E87.6 Hypokalemia; R41.0 Disorientation, unspecified; Z79.899 Other long term (current) drug therapy; Z20.828 Contact with and (suspected) exposure to other viral communicable diseases; G47.30 Sleep apnea, unspecified; T42.4X5A Adverse effect of benzodiazepines, initial encounter; R06.03 Acute respiratory distress; K21.9 Gastro-esophageal reflux disease without esophagitis